=== PATIENT | female | born 1980 | race Caucasian/White ===

== ENCOUNTER 2016-10-26 19:12 | Emergency (ER) | payer MEDICAID ==
[~2016-10-26] VITALS: Ht 167.6 cm; Wt 85.6 kg
[~2016-10-26 19:12] MED LIST: DEPO-PROVER150 MG/M1 IM; EQUALINE PRENATAL; GANODERMA; MOTRIN 800800 MG/TAB PO; PERCOCET 325 MG1 TA2 PO; PRENATAL FORMU1 EAC3 PO; PRENATAL1 TA1 PO; ZITHROMAX Z PA250 MG PO
[2016-10-26 19:14] VITALS: BP 151/85; PULSE 72; TEMP 98.1
[2016-10-26] MEDS ORDERED: FLEXERIL 1010 MG/TAB PO (19:40)
== END 2016-10-26 19:46 | disposition home or self-care (01) ==
LOC: COL.ER 19:12
DX: M54.6 Pain in thoracic spine (principal); Z98.51 Tubal ligation status; W20.8XXA Other cause of strike by thrown, projected or falling object, initial encounter; Y92.009 Unspecified place in unspecified non-institutional (private) residence as the place of occurrence of the external cause

== ENCOUNTER 2016-11-04 13:22 | Emergency (ER) | payer MEDICAID ==
[~2016-11-04] VITALS: Ht 167.6 cm; Wt 85.5 kg
[~2016-11-04 13:22] MED LIST changes: +FLEXERIL 1010 MG/TAB PO
[2016-11-04 13:33] VITALS: BP 138/86; TEMP 97.9
[2016-11-04] MEDS ORDERED: TRIAMCINOLONE A15 G1 TP (15:53)
[2016-11-04 16:11] VITALS: PULSE 92
== END 2016-11-04 16:12 | disposition home or self-care (01) ==
LOC: COL.ER 13:22
DX: L25.9 Unspecified contact dermatitis, unspecified cause (principal)

== ENCOUNTER 2017-03-30 12:18 | Emergency (ER) | payer MEDICAID ==
[~2017-03-30] VITALS: Ht 167.6 cm; Wt 79.9 kg
[~2017-03-30 12:18] MED LIST changes: +TRIAMCINOLONE A15 G1 TP
[2017-03-30 12:21] VITALS: BP 143/71; PULSE 69; TEMP 97.9
== END 2017-03-30 13:57 | disposition left against medical advice (07) ==
LOC: COL.ER 12:18
DX: M25.551 Pain in right hip (principal); Z79.52 Long term (current) use of systemic steroids; W00.0XXA Fall on same level due to ice and snow, initial encounter

== ENCOUNTER 2018-04-17 22:07 | Emergency (ER) | payer MEDICAID | END 2018-04-18 01:04 | disposition home or self-care (01) | LOC: COL.ER 22:07 | DX: S22.42XA Multiple fractures of ribs, left side, initial encounter for closed fracture (principal); S00.83XA Contusion of other part of head, initial encounter; S50.12XA Contusion of left forearm, initial encounter; Z98.51 Tubal ligation status; Y04.8XXA Assault by other bodily force, initial encounter; Y92.009 Unspecified place in unspecified non-institutional (private) residence as the place of occurrence of the external cause ==

== ENCOUNTER 2018-04-18 10:06 | Emergency (ER) | payer MEDICAID | END 2018-04-18 13:26 | disposition home or self-care (01) | LOC: COL.ER 10:06 | DX: S06.0X0A Concussion without loss of consciousness, initial encounter (principal); S22.42XA Multiple fractures of ribs, left side, initial encounter for closed fracture; Y09 Assault by unspecified means; Y92.009 Unspecified place in unspecified non-institutional (private) residence as the place of occurrence of the external cause ==

== ENCOUNTER → 2021-04-05 | Outpatient (CLI) | payer BC ==
[~2021-04-05] MED LIST changes: +NORCO 325 MG-51 TAB PO
== END ==
LOC: MC.RAD 08:44
DX: Z12.31 Encounter for screening mammogram for malignant neoplasm of breast (principal)

== ENCOUNTER → 2023-07-28 | Outpatient (CLI) | payer BC | LOC: COL.CARD 07:28 | DX: R06.02 Shortness of breath (principal) ==

== ENCOUNTER → 2023-09-08 | Outpatient (CLI) | payer BC | LOC: MC.RAD 08:43 | DX: Z12.31 Encounter for screening mammogram for malignant neoplasm of breast (principal) ==